=== PATIENT | female | born 1975 | race Caucasian/White ===

== ENCOUNTER 2020-08-05 14:48 | Outpatient (REF) | payer OTHER, SELFPAY ==
[2020-08-06 09:51] LABS: SARS COV2 PCR INHOUSE NEGATIVE (Negative)
== END 2020-08-05 14:49 | disposition home or self-care (01) ==
LOC: HO.LAB 14:48
PROVIDERS: Visit Provider Internal Medicine
DX: Z20.822 Contact with and (suspected) exposure to COVID-19 (principal)
CPT/HCPCS: C9803; U0003

== ENCOUNTER 2024-04-30 13:02 | Emergency (ER) | payer OTHER, SELFPAY ==
--- NOTE | ~2024-04-30 | CT_ITS ---
EXAMINATION: CT HEAD WITHOUT CONTRAST CLINICAL INFORMATION: Headache status-post fall. COMPARISON: MRI brain dated 03/13/2006. TECHNIQUE: Contiguous axial imaging was performed from the skull base to vertex without intravenous administration of contrast. Multiplanar reformatted images are submitted. This CT examination was performed using dose optimization techniques as appropriate, variously including the following: *Automated exposure control *Adjustment of mA and/or kV according to patient size (this includes techniques or standardized protocols for targeted exams where dose is matched to indication/reason for exam; i.e. extremities or head) *Use of iterative reconstruction technique DLP: 924 mGy-cm (head and cervical spine) FINDINGS: There is no acute intracranial hemorrhage or evidence of territorial infarction. No abnormal mass effect or midline shift is seen. Rdz to white matter differentiation is well preserved. There is no abnormal attenuation within the brain parenchyma. The ventricles are normal in size. No extra-axial fluid collections are identified. The calvarium and scalp soft tissues are normal. The middle ear cavity and mastoid air cells are clear. There is cerumen within the right external auditory canal. The visualized paranasal sinuses are clear. CT/CT head/brain wo IV con IMPRESSION: No acute intracranial pathology. EXAMINATION: CT CERVICAL SPINE WITHOUT CONTRAST CLINICAL INFORMATION: Neck pain status-post fall. COMPARISON: None available. TECHNIQUE: Contiguous axial imaging was performed through the cervical spine without intravenous administration of contrast. Multiplanar reformatted images are submitted. This CT examination was performed using dose optimization techniques as appropriate, variously including the following: *Automated exposure control *Adjustment of mA and/or kV according to patient size (this includes techniques or standardized protocols for targeted exams where dose is matched to indication/reason for exam; i.e. extremities or head) *Use of iterative reconstruction technique DLP: As above. FINDINGS: Vertebral body heights are normal. There is moderate reversal of the normal lordotic curvature. At C4-5 and C5-6, there is very mild disc space narrowing, with endplate arthropathy and Schmorl's node formation. The remaining disc spaces are well-maintained. There is a displaced fracture of the lateral aspect of the C4 rightward lamina (15:30 and 4:129). There is a further hairline, nondisplaced fracture of the C4 rightward pedicle (15:26 and 4:123). A minimal nondisplaced fracture line is as well questioned of the lateral wall of the right vertebral artery foramen at the C4 level (4:134). This is only noted on the axial views. A minimal bone fragment is seen within the right vertebral artery foramen medially, arising from the lateral endplate margin (15:24 and 4:135). There is no associated significant central canal stenosis. There is no prevertebral soft tissue swelling. The dens is intact. The bilateral lung apices are clear. IMPRESSION: 1. Fractures are noted of the C4 rightward lamina and pedicle, as detailed. There is an equivocal nondisplaced fracture line of the lateral wall of the rightward vertebral artery foramen at C4. There is no associated central canal stenosis. 2. There is moderate reversal of the normal lordotic curvature, which can be associated with muscle spasm. This critical result was discussed with Dr. Yamile Adkins, at 2:30 PM on 04/30/2024, and it was ascertained that the content and urgency of this report was understood at the time of direct communication. Fleischner guidelines were followed. Electronically signed by: Eugene Koo MD 04/30/2024 02:43 PM [facility] [place]
[2024-04-30 13:05] VITALS: BP 112/60; PULSE 58; RESP 18; TEMP 37; O2SAT 98; BMI 24.2
--- NOTE | 2024-04-30 13:05 | ED_ITS ---
HPI - Fall General Chief Complaint: Fall Stated Complaint: Fell down stairs - neck injury Time Seen by Provider: 04/30/24 13:23 Source: patient and RN notes reviewed Mode of arrival: ambulatory Limitations: no limitations History of Present Illness ED Provider: Yamile Adkins PA-C [facility] Narrative: This is a 48-year-old female, with a history of depression, who presents emergency department with neck pain status post mechanical fall. Patient states that at approximately 11:00 a.m. this morning, she slipped on her sock and fell down approximately 7 wooden steps. She states that she fell going forward, and rolled down these steps. Denies LOC. She reports that she has had neck pain since fall. Denies any numbness tingling or weakness down into her arms. She is not on anticoagulation. Denies history of neck problems in the past. No severe headache. No nausea or vomiting. No changes in vision,. No weakness. She arrived to the emergency room as her dad drove her to the hospital, she walked into triage. No other complaints or concerns at this time. MD complaint: fall Onset (ago): hour(s) Fall from: down stairs (#) (7) Fall witnessed: no Place fall occurred: home Loss of consciousness: none Prolonged down time: no Symptoms prior to fall: none Context: tripped/slipped Location of injury: neck Quality: aching Associated symptoms (after fall): neck pain Related Data Allergies Allergy/AdvReac Type Severity Reaction Status Date / Time HAYFEVER Allergy Mild RUNNY NOSE Uncoded 04/30/24 13:07 Review of Systems Review of Systems: Yes all other systems are reviewed and are negative Constitutional: Constitutional: Reports as per [facility] Past Medical History Attestation statement: The following information was validated with the patient. Social History Social History Advance Directives: No Advance Directives Information Provided: No Physical Exam Vital Signs: Vital Signs: Last Vital Signs Temp 98.6 F 04/30/24 13:05 Pulse 58 04/30/24 13:05 Resp 18 04/30/24 13:05 BP 112/60 04/30/24 13:05 Pulse Ox 98 04/30/24 13:05 O2 Del Method Room Air 04/30/24 13:05 BMI result Body Mass Index 24.2 Const: General: cooperative, comfortable and no acute distress Orientation/consciousness: patient oriented x3 Limitations: no limitations HEENT: Head: Yes normal to inspection and Yes normocephalic Ears: hearing grossly normal bilaterally General nose exam: Normal external nose present Face and sinus: Yes normal facial exam Mouth: Normal oral and palatal mucosa present, oropharynx normal and moist mucous membranes Throat: Yes posterior oropharynx normal Eyes: General: appearance normal, both eyes and all related structures Eyelids: Yes eyelids normal Conjunctivae: conjunctivae normal Sclerae: sclerae normal Pupils: Equal, round and reactive pupils present EOM: EOMs intact bilaterally Neck: Other: Patient has midline spine tenderness along the cervical spine. No palpable bony deformity or crepitus noted. She does have overlying warmth and faint erythema which pt attributes to heat pack she had on her neck [employer]. Neck: Yes no lymphadenopathy Lymphatic: no lymphadenopathy noted Chest: Other: No chest wall tenderness, no ecchymosis, bony step-off. No flail chest. Chest palpation & inspection: normal inspection of the chest Resp: Effort & Inspection: normal respiratory effort and able to speak in complete sentences Auscultation: clear to auscultation bilaterally, no crackles, no rales, no rhonchi and no wheezes Cardio: Rate: regular rate Rhythm: regular rhythm Heart sounds: S1 normal heart sound present and S2 normal heart sound present GI: Other: Abdomen is soft, nontender, nondistended. No ecchymosis seen. Inspection: Yes normal to inspection Skin: General skin exam: no rashes or lesions noted Trauma: no lacerations or abrasions Wounds: no wounds Neuro: General: patient oriented x3, moves all extremities and Unable to assess gait Cranial nerves: Yes CN's II-XII intact bilaterally and Yes Equal, round and reactive pupils present Cognition (Neuro): normal cognition Gait exam (Neuro): Unable to assess gait Motor exam (neuro): 5/5 motor strength present throughout, Pronator motor function not present, no tremor noted and Motor fasciculations not present Extrem: General: Yes normal to inspection Right upper extremity: normal to inspection Left upper extremity: normal to inspection Right lower e xtremity: normal to inspection Left lower extremity: normal to inspection Course Reevaluation(s) Reevaluation #1: Received critical report from [facility], patient has a fracture in the C4 rightward lamina and pedicle. There is an nondisplaced fracture line of the lateral wall of the rightward vertebral artery foramen at C4. No associated central canal stenosis. Discussed case with my attending physician, Dr. Orr. Placed call out to [facility] trauma for transfer. C-collar was replaced with Harrells collar. Time: 14:30 Reevaluation #2: Discussed case with Dr. Martin from [facility], advising ED to ED transfer with neurosurgical consult. We will continue to closely, she remains to be in Harrells collar. Will medicate with morphine IV, transfer of care initiated. Time: 15:42 Medical Decision Making Medical Decision Making MDM Narrative: This is a 48-year-old female, with a hx of depression, who presents emergency department with complaints of neck pain status post mechanical fall which occurred 2 hours ago. On arrival, vital signs within normal limits. She is neurologically intact. No focal deficits on examination. She does have midline C-spine tenderness on examination, without any bony step-off or crepitus. Given fall, with neck pain and midline spine tenderness, will obtain CT head and neck, she was placed in a cervical collar in triage due to midline spine ttp. Differential diagnoses include cervical fracture, dislocation, ICH, closed head injury. We will continue to closely monitor. Plan: CT head and neck Differential Diagnosis Differential Diagnoses: The differential diagnosis associated with the presentation includes See above Radiology Impression Discussion of test interpretation with radiology: I have reviewed the radiologist's reading. Radiologist Impression: FINDINGS: There is no acute intracranial hemorrhage or evidence of territorial infarction. No abnormal mass effect or midline shift is seen. Rdz to white matter differentiation is well preserved. There is no abnormal attenuation within the brain parenchyma. The ventricles are normal in size. No extra-axial fluid collections are identified. The calvarium and scalp soft tissues are normal. The middle ear cavity and mastoid air cells are clear. There is cerumen within the right external auditory canal. The visualized paranasal sinuses are clear. CT/CT cervical spine wo IV con IMPRESSION: No acute intracranial pathology. EXAMINATION: CT CERVICAL SPINE WITHOUT CONTRAST CLINICAL INFORMATION: Neck pain status-post fall. COMPARISON: None available. TECHNIQUE: Contiguous axial imaging was performed through the cervical spine without intravenous administration of contrast. Multiplanar reformatted images are submitted. This CT examination was performed using dose optimization techniques as appropriate, variously including the following: *Automated exposure control *Adjustment of mA and/or kV according to patient size (this includes techniques or standardized protocols for targeted exams where dose is matched to indication/reason for exam; i.e. extremities or head) *Use of iterative reconstruction technique DLP: As above. FINDINGS: Vertebral body heights are normal. There is moderate reversal of the normal lordotic curvature. At C4-5 and C5-6, there is very mild disc space narrowing, with endplate arthropathy and Schmorl's node formation. The remaining disc spaces are well-maintained. There is a displaced fracture of the lateral aspect of the C4 rightward lamina (15:30 and 4:129). There is a further hairline, nondisplaced fracture of the C4 rightward pedicle (15:26 and 4:123). A minimal nondisplaced fracture line is as well questioned of the lateral wall of the right vertebral artery foramen at the C4 level (4:134). This is only noted on the axial views. A minimal bone fragment is seen within the right vertebral artery foramen medially, arising from the lateral endplate margin (15:24 and 4:135). There is no associated significant central canal stenosis. There is no prevertebral soft tissue swelling. The dens is intact. The bilateral lung apices are clear. IMPRESSION: 1. Fractures are noted of the C4 rightward lamina and pedicle, as detailed. There is an equivocal nondisplaced fracture line of the lateral wall of the rightward vertebral artery foramen at C4. There is no associated central canal stenosis. 2. There is moderate reversal of the normal lordotic curvature, which can be associated with muscle spasm. This critical result was discussed with Dr. Yamile Adkins, at 2:30 PM on 04/30/2024, and it was ascertained that the content and urgency of this report was understood at the time of direct communication. Fleischner guidelines were followed. Electronically signed by: Eugene Koo MD 04/30/2024 02:43 PM [facility] [place] By: Eugene Koo MD Critical Care Time Critical Care Time Critical Care Time: Yes Total Critical Care Time: 45 Attestation: I have personally provided critical care time exclusive of time spent on separately billable procedures. Time includes review of lab data, radiology results, discussion with consultants, and monitoring for potential decompensation. Intervention performed as documented. Discharge Plan Discharge Clinical Impression: Cervical spine fracture Qualifiers: Encounter type: initial encounter Cervical vertebra fracture level: C4 Fracture type: closed Patient Disposition: Still a Patient Print Language: Finnish
--- NOTE | 2024-04-30 13:10 | PC.NURSE ---
Pt collared in [facility] to alert charge account identification clerk
[2024-04-30] MEDS: ondansetron HCL 4 MG/2 ML VIAL IVPUSH (15:56)
[2024-04-30] MEDS: Morphine Sulfate 4 MG/ML CARTRIDGE IVPUSH (15:56)
[2024-04-30 16:02] VITALS: BP 97/63; PULSE 56; RESP 14; TEMP 36.6; O2SAT 100
[2024-04-30 16:23] VITALS: BP 97/63; PULSE 56; RESP 14; TEMP 36.6; O2SAT 100
== END 2024-04-30 16:25 | disposition short-term general hospital (02) ==
PROVIDERS: Emergency Provider Student in an Organized Health Care Education/Training Program; PCP Student in an Organized Health Care Education/Training Program
DX: S12.300A Unspecified displaced fracture of fourth cervical vertebra, initial encounter for closed fracture (principal); W10.2XXA Fall (on)(from) incline, initial encounter; R51.9 Headache, unspecified; M54.2 Cervicalgia; Y93.89 Activity, other specified; Y92.89 Other specified places as the place of occurrence of the external cause; Y99.8 Other external cause status
CPT/HCPCS: 70450; 72125; 96374; 96375; 99283; 99285; J2270; J2405